=== PATIENT | female | born 1975 | race Caucasian/White ===

== ENCOUNTER 2016-10-18 09:43 | Observation (INO) | payer MEDICAID ==
[2016-10-18] MEDS ORDERED: ASPIRIN 81 MG TABLET, CHEWABLE PO ONE (10:54)
[2016-10-18] MEDS ORDERED: NORMAL SALINE 1000 ML 1,000 ML IV PRN (10:54)
[2016-10-18] MEDS ORDERED: NITROGLYCERIN 2% OINTMENT 1 GM PACKET TP ONE (10:54)
[2016-10-18 10:56] LABS: ABSOLUTE BASOPHILS # (AUTO) 0.1 10^3/uL (0.0-0.2); ABSOLUTE EOSINOPHILS # (AUTO) 0.3 10^3/uL (0.0-0.6); ABSOLUTE LYMPHOCYTES (AUTO) 2.7 10^3/uL (0.5-4.7); ABSOLUTE MONOCYTES (AUTO) 0.9 10^3/uL (0.1-1.4); ABSOLUTE NEUT (AUTO) 5.8 10^3/uL (1.7-8.2); BASOPHILS % (AUTO) 0.5 % (0-2); EOSINOPHILS % (AUTO) 3.2 % (0-6); HEMOGLOBIN 13.2 g/dL (12.0-15.5); HGB HCT DIFFERENCE 1.6; LYMPHOCYTES % (AUTO) 27.9 % (13-45); MEAN CORPUSCULAR HEMOGLOBIN 29.4 pg (27.0-33.4); MEAN CORPUSCULAR HGB CONC 34.8 g/dL (32.0-36.0); MEAN CORPUSCULAR VOLUME 85 fl (80-97); MONOCYTES % (AUTO) 9.3 % (3-13); RED BLOOD COUNT 4.49 10^6/uL (3.72-5.28); RED CELL DISTRIBUTION WIDTH 14.6 % (11.5-14.0); SEGMENTED NEUTROPHILS % (AUTO) 59.1 % (42-78); WHITE BLOOD COUNT 9.8 10^3/uL (4.0-10.5)
--- NOTE | 2016-10-18 11:04 | ER Document Report ---
ED Cardiac - General Chief Complaint: Palpitations Stated Complaint: PALIPATATION Time seen by provider: 10:52 Mode of Arrival: Ambulatory Information source: Patient Notes: This is a 41-year-old female with a history of tachycardia presents to the emergency room with diaphoresis, upper chest discomfort (tightness), palpitations. Patient states that her symptoms are different than what they normally are. TRAVEL OUTSIDE OF THE [place] IN LAST 30 DAYS: No - HPI Patient complains to provider of: Chest tightness, Palpitations Use of: denies: Alcohol, Amphetamines, Bath salts, Caffeine, Cocaine, Decongestants, Other Was the onset of pain: Gradual Is the pain a: New problem Quality of pain: Dull Severity now: None Severity at worst: Mild Pain level currently: Denies Cardiac risk factors: Smoker Positive cardiac history: Yes Associated symptoms: Shortness of breath Exacerbated by: Denies Relieved by: Nothing Similar symptoms previously: Yes Recently seen / treated by doctor: No - Related Data Allergies/Adverse Reactions: Sulfa (Sulfonamide Antibiotics) Adverse Reaction (Verified 10/18/16 10:00) Home Medications: Current Home Medications Isosorbide Dinitrate [Isordil Titradose 5 Mg Tablet] 5 mg PO Q12 10/18/16 [ History] Metoprolol Succinate [Toprol Xl 50 mg Tab.sr] 75 mg PO QHS 10/18/16 [History] Past Medical History - General Information source: Patient - Social History Smoking Status: Current Every Day Smoker Cigarette use (# per day): Yes Chew tobacco use (# tins/day): Yes Smoking Education Provided: No - half-pack a day Frequency of alcohol use: None Drug Abuse: None Lives with: Family Family History: Reviewed & Not Pertinent Patient has suicidal ideation: No Patient has homicidal ideation: No - Past Medical History Cardiac Medical History: Reports: Hx Hypertension Pulmonary Medical History: Reports: None EENT Medical History: Reports: None Neurological Medical History: Reports: None Endocrine Medical History: Reports: None Renal/ Medical History: Reports: None. Denies: Hx Peritoneal Dialysis Malignancy Medical History: Reports: None GI Medical History: Reports: Hx Diverticulitis Past Surgical History: Reports: Hx Cardiac Catheterization, Hx Tubal Ligation - Immunizations Hx Diphtheria, Pertussis, Tetanus Vaccination: Yes Review of Systems - Review of Systems Notes: Review of systems: Constitutional: Denies fever, chills. EENT: Denies ear pain, sinus tenderness, throat pain, throat swelling. Cardiovascular: See H&P Respiratory: Denies wheezing, cough, hemoptysis. Abdomen: Denies abdominal pain, nausea, vomiting, diarrhea. Denies BRBPR or melena. Genitourinary: Denies dysuria, pyuria, hematuria, flank pain. Musculoskeletal: denies joint pain or swelling, denies back pain. Neurologic: Denies headache, photophobia, neck stiffness, weakness. Denies loss of bowel or bladder function. Denies saddle anesthesia. Skin: Denies rash, lesions. Physical Exam - Vital signs Vitals: Temp Pulse Resp BP Pulse Ox 98.0 F 109 H 20 133/88 H 99 10/18/16 09:47 10/18/16 09:47 10/18/16 09:47 10/18/16 09:47 10/18/16 09:47 Notes: Physical exam: GENERAL: 41-year-old female, alert and oriented 3, no acute distress. HEAD: Atraumatic, normocephalic. EYES: Pupils equal round and reactive to light, extraocular movements intact, sclera anicteric, conjunctiva are normal. ENT: TMs normal, nares patent, oropharynx clear without exudates. Moist mucous membranes. NECK: Normal range of motion, supple without lymphadenopathy or JVD. LUNGS: Breath sounds clear to auscultation bilaterally and equal. No wheezes rales or rhonchi. HEART: Regular rate and rhythm without murmurs, rubs or gallops. ABDOMEN: Soft, normoactive bowel sounds. No tenderness to palpation. No guarding, no rebound. No masses appreciated. EXTREMITIES: Normal range of motion, no pitting or edema. No clubbing or cyanosis. NEUROLOGICAL: Cranial nerves II through XII grossly intact. Normal speech, normal gait. PSYCH: Normal mood, normal affect. SKIN: Warm, Dry, normal turgor, no rashes or lesions noted. Course - Re-evaluation Re-evalutation: 10/18/16 11:48 Patient currently is comfortable in bed. gambling monitor shows normal sinus rhythm. She's not in any discomfort. - Vital Signs Vital signs: Temp Pulse Resp BP Pulse Ox 98.2 F 68 12 114/62 100 10/18/16 18:05 10/18/16 18:05 10/18/16 18:05 10/18/16 18:05 10/18/16 18:05 - Laboratory Result Diagrams: 10/18/16 10:27 10/18/16 10:27 Laboratory results interpreted by me: 10/18/16 10/18/16 10:27 10:27 RDW 14.6 H Sodium 135.3 L Carbon Dioxide 19 L BUN 23 H - Diagnostic Test Radiology reviewed: Image reviewed, Reports reviewed - Chest x-ray shows no infiltrates or effusions - EKG Interpretation by Me Rate: Normal Rhythm: NSR - EKG shows normal sinus rhythm with a ventricular rate of 84, no acute ST-T wave changes Discharge - Discharge Clinical Impression: chest pain Condition: Stable Disposition: ADMITTED OBSERVATION Admitting Provider: Hospitalist - Dr. Monroe/Remi Unit Admitted: Telemetry
[2016-10-18 11:07] LABS: PROTHROMBIN TIME 13.1 SEC (11.4-15.4)
[2016-10-18 11:20] LABS: ALANINE AMINOTRANSFERASE 20 U/L (9-52); ALBUMIN 4.2 g/dL (3.5-5.0); ALKALINE PHOSPHATASE 74 U/L (38-126); ANION GAP 13 (5-19); ASPARTATE AMINO TRANSFERASE 19 U/L (14-36); BILIRUBIN,TOTAL 0.4 mg/dL (0.2-1.3); BLOOD UREA NITROGEN 23 mg/dL (7-20); CALCIUM 9.2 mg/dL (8.4-10.2); CARBON DIOXIDE 19 mmol/L (22-30); CHLORIDE 103 mmol/L (98-107); CREATINE KINASE 87 U/L (30-135); CREATININE RESULT 0.89 mg/dL (0.52-1.25); GLUCOSE 92 mg/dL (75-110); POTASSIUM 4.4 mmol/L (3.6-5.0); SODIUM 135.3 mmol/L (137-145); TOTAL PROTEIN 7.3 g/dL (6.3-8.2)
[2016-10-18 11:31] LABS: CREATINE KINASE MB 0.53 ng/mL (<4.55)
[2016-10-18 11:32] LABS: TROPONIN I < 0.012 ng/mL
[2016-10-18] MEDS ORDERED: REGADENOSON INJ 0.4 MG/5 ML DISP.SYRIN IV ONE (11:41)
[2016-10-18 12:52] LABS: THYROID STIMULATING HORMONE 0.98 uIU/mL (0.47-4.68)
--- NOTE | 2016-10-18 12:59 | EKG REPORT ---
SEVERITY:- NORMAL ECG - SINUS RHYTHM : Confirmed by: Ana Berg 18-Oct-2016 12:58:57
[2016-10-18] MEDS ORDERED: ENOXAPARIN SODIUM INJ 40 MG/0.4 ML DISP.SYRIN SUBCUT ONE (13:00)
--- NOTE | 2016-10-18 16:44 | PDOC H&P ---
<MIS DE LEON - Last Filed: 10/18/16 16:37> History of Present Illness Admission Date/PCP: 10/18/16 11:47 CHELY KERNS MD Patient complains of: Chest pain, heart palpitations History of Present Illness: DEBBI MORRIS is a 41 year old female is a past medical history of symptomatic sinus tachycardia that presented to the emergency room with diaphoresis, upper chest discomfort (tightness), palpitations. Patient states that her symptoms are different than what they normally are. The patient was found to be in sinus rhythm cardiac enzymes unremarkable 1 set and the patient had spontaneous resolution of symptoms. She is followed by Dr. Adame cardiology in [facility]. The patient states that she has worn event monitor in the past. The patient underwent cardiac catheterization in 2009 and was noted to have clean coronaries at that time. The patient states that today symptoms were more dramatic than usual and the patient was referred to the hospitalists for observation and management. 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 Medication/Allergy Home Medications: Isosorbide Dinitrate [Isordil Titradose 5 mg Tablet] 5 mg PO Q12 10/18/16 Metoprolol Succinate [Toprol Xl 50 mg Tab.sr] 75 mg PO QHS 10/18/16 Allergies/Adverse Reactions: Sulfa (Sulfonamide Antibiotics) Adverse Reaction (Verified 10/18/16 10:00) Review of Systems Constitutional: PRESENT: night sweats, weakness. ABSENT: chills, fever(s), headache(s), weight gain, weight loss Eyes: ABSENT: visual disturbances Ears: ABSENT: hearing changes Cardiovascular: PRESENT: chest pain, palpitations. ABSENT: dyspnea on exertion , edema, orthropnea Respiratory: ABSENT: cough, hemoptysis Gastrointestinal: ABSENT: abdominal pain, constipation, diarrhea, hematemesis, hematochezia, nausea, vomiting Genitourinary: ABSENT: dysuria, hematuria Musculoskeletal: ABSENT: joint swelling Integumentary: ABSENT: rash, wounds Neurological: ABSENT: abnormal gait, abnormal speech, confusion, dizziness, focal weakness, syncope Psychiatric: ABSENT: anxiety, depression, homidical ideation, suicidal ideation Endocrine: ABSENT: cold intolerance, heat intolerance, polydipsia, polyuria Hematologic/Lymphatic: ABSENT: easy bleeding, easy bruising Physical Exam Vital Signs: Temp Pulse Resp BP Pulse Ox 98.0 F 109 H 20 105/62 92 10/18/16 09:47 10/18/16 09:47 10/18/16 15:01 10/18/16 15:01 10/18/16 15:00 General appearance: PRESENT: no acute distress, cooperative, well-developed, well-nourished Head exam: PRESENT: atraumatic, normocephalic Eye exam: PRESENT: conjunctiva pink, EOMI, PERRLA. ABSENT: scleral icterus Ear exam: PRESENT: normal external ear exam Mouth exam: PRESENT: moist, tongue midline Neck exam: ABSENT: carotid bruit, JVD, lymphadenopathy, thyromegaly Respiratory exam: PRESENT: clear to auscultation enrique, symmetrical, unlabored. ABSENT: rales, rhonchi, tachypnea, wheezes Cardiovascular exam: PRESENT: RRR. ABSENT: diastolic murmur, rubs, systolic murmur Pulses: PRESENT: normal dorsalis pedis pul Vascular exam: PRESENT: normal capillary refill GI/Abdominal exam: PRESENT: normal bowel sounds, soft. ABSENT: distended, guarding, mass, organolmegaly, rebound, tenderness Rectal exam: PRESENT: deferred Extremities exam: PRESENT: full ROM. ABSENT: calf tenderness, clubbing, pedal edema Neurological exam: PRESENT: alert, awake, oriented to person, oriented to place , oriented to time, oriented to situation, CN II-XII grossly intact. ABSENT: motor sensory deficit Psychiatric exam: PRESENT: appropriate affect, normal mood. ABSENT: homicidal ideation, suicidal ideation Skin exam: PRESENT: dry, intact, warm. ABSENT: cyanosis, rash Results Laboratory Results: Labs- Last Values WBC 9.8 10^3/uL (4.0-10.5) 10/18/16 10:27 RBC 4.49 10^6/uL (3.72-5.28) 10/18/16 10:27 Hgb 13.2 g/dL (12.0-15.5) 10/18/16 10:27 Hct 38.0 % (36.0-47.0) 10/18/16 10:27 MCV 85 fl (80-97) 10/18/16 10:27 MCH 29.4 pg (27.0-33.4) 10/18/16 10:27 MCHC 34.8 g/dL (32.0-36.0) 10/18/16 10:27 RDW 14.6 % (11.5-14.0) H 10/18/16 10:27 Plt Count 174 10^3/uL (150-450) 10/18/16 10:27 Seg Neutrophils % 59.1 % (42-78) 10/18/16 10:27 Lymphocytes % 27.9 % (13-45) 10/18/16 10:27 Monocytes % 9.3 % (3-13) 10/18/16 10:27 Eosinophils % 3.2 % (0-6) 10/18/16 10:27 Basophils % 0.5 % (0-2) 10/18/16 10:27 Absolute Neutrophils 5.8 10^3/uL (1.7-8.2) 10/18/16 10:27 Absolute Lymphocytes 2.7 10^3/uL (0.5-4.7) 10/18/16 10:27 Absolute Monocytes 0.9 10^3/uL (0.1-1.4) 10/18/16 10:27 Absolute Eosinophils 0.3 10^3/uL (0.0-0.6) 10/18/16 10:27 Absolute Basophils 0.1 10^3/uL (0.0-0.2) 10/18/16 10:27 PT 13.1 SEC (11.4-15.4) 10/18/16 10:27 INR 0.96 10/18/16 10:27 Sodium 135.3 mmol/L (137-145) L 10/18/16 10:27 Potassium 4.4 mmol/L (3.6-5.0) 10/18/16 10:27 Chloride 103 mmol/L (98-107) 10/18/16 10:27 Carbon Dioxide 19 mmol/L (22-30) L 10/18/16 10:27 Anion Gap 13 (5-19) 10/18/16 10:27 BUN 23 mg/dL (7-20) H 10/18/16 10:27 Creatinine 0.89 mg/dL (0.52-1.25) 10/18/16 10:27 Est GFR ( Amer) > 60 (>60) 10/18/16 10:27 Est GFR (Non-Af Amer) > 60 (>60) 10/18/16 10:27 Glucose 92 mg/dL (75-110) 10/18/16 10:27 Calcium 9.2 mg/dL (8.4-10.2) 10/18/16 10:27 Total Bilirubin 0.4 mg/dL (0.2-1.3) 10/18/16 10:27 Direct Bilirubin 0.0 mg/dL (0.0-0.3) 10/18/16 10:27 AST 19 U/L (14-36) 10/18/16 10:27 ALT 20 U/L (9-52) 10/18/16 10:27 Alkaline Phosphatase 74 U/L (38-126) 10/18/16 10:27 Creatine Kinase 87 U/L (30-135) 10/18/16 10:27 CK-MB (CK-2) 0.53 ng/mL (<4.55) 10/18/16 10:27 Troponin I < 0.012 ng/mL 10/18/16 10:27 Total Protein 7.3 g/dL (6.3-8.2) 10/18/16 10:27 Albumin 4.2 g/dL (3.5-5.0) 10/18/16 10:27 TSH 0.98 uIU/mL (0.47-4.68) 10/18/16 10:27 Free T4 1.56 ng/dL (0.78-2.19) 10/18/16 10:27 Impressions: Chest X-Ray 10/18/16 00:00 IMPRESSION: NO ACUTE RADIOGRAPHIC FINDING IN THE CHEST. Assessment & Plan - Diagnosis (1) Chest pain Qualifiers: Chest pain type: unspecified Qualified Code(s): R07.9 - Chest pain, unspecified Is this a current diagnosis for this admission?: YesPlan: Will observe the patient continues telemetry will obtain serial cardiac enzymes repeat EKG and monitor on telemetry. Given the patient's risk factors of family history of early onset coronary artery disease as well as tobacco dependency will schedule for Cardiolite stress test and follow. (2) Sinus tachycardia Is this a current diagnosis for this admission?: YesPlan: The patient is currently rate control will continue Cardizem. (3) DVT prophylaxis Is this a current diagnosis for this admission?: YesPlan: Will add subcutaneous heparin - Time Time Spent: 50 to 70 Minutes Medications reviewed and adjusted accordingly: Yes Anticipated discharge: Home Within: within 24 hours Disposition: The patient is a full code. Pending patient's symptomatology and diagnostic findings will reevaluate in the a.m. <JOHN GRAY - Last Filed: 10/20/16 14:13> History of Present Illness Admission Date/PCP: 10/18/16 11:47 CHELY KERNS MD History of Present Illness: DEBBI MORRIS is a 41 year old female Physical Exam Vital Signs: Temp Pulse Resp BP Pulse Ox 98.2 F 75 18 114/62 97 10/19/16 14:01 10/19/16 14:01 10/19/16 14:01 10/19/16 14:01 10/19/16 14:01 Intake & Output 10/19/16 10/20/16 10/21/16 06:59 06:59 06:59 Intake Total 5 Balance 5 Weight 89.4 kg Results Laboratory Results: 10/18/16 10/19/16 18:18 00:17 Troponin I < 0.012 < 0.012 Impressions: Chest X-Ray 10/18/16 00:00
[2016-10-18] MEDS: ISOSORBIDE DINITRATE 5 MG TABLET PO SCH (21:37)
[2016-10-18] MEDS ORDERED: METOPROLOL SUCCINATE 50 MG TAB.SR.24H PO SCH (22:00)
[2016-10-19 06:39] LABS: CHOLESTEROL 177.28 mg/dL (0-200); Direct HDL 38 mg/dL (>40); TRIGLYCERIDES 117 mg/dL (<150)
[2016-10-19 06:50] LABS: DIRECT LDL 112 mg/dL (<100)
[2016-10-19] MEDS ORDERED: ENOXAPARIN SODIUM INJ 40 MG/0.4 ML DISP.SYRIN SUBCUT SCH (08:00)
--- NOTE | 2016-10-19 09:36 | EKG REPORT ---
SEVERITY:- NORMAL ECG - SINUS RHYTHM : Confirmed by: Ana Berg 19-Oct-2016 09:35:35
[2016-10-19] MEDS: ISOSORBIDE DINITRATE 5 MG TABLET PO SCH (11:06)
[2016-10-19 14:05] VITALS: BP 114/62
--- NOTE | 2016-10-19 14:29 | DRAGON STRESS TEST REPORT ---
Intravenous Lexiscan Cardiolite stress test using single photon emmision computerized tomography. Date of procedure: 10/19/2016 Ordering Provider: Ms. Ran Khalil NP. Indication: Chest pain. Coronary risk factors: Age, hypertension, tobacco abuse disorder, and family history of coronary artery disease. Resting EKG: Sinus Rhythm. Within Normal Limits. Stress EKG:[ No changes of ischemia. The patient had transient chest pressure relieved with drinking Pepsi. There were no arrhythmias seen. Reason for termination: Protocol. Conclusions: Normal EKG and hemodynamic response to IV Lexiscan. Nuclear data: At rest the patient was given 13.44 millicuries of technetium 99m sestamibi injected intravenously. As per protocol rest non gated SPECT images were obtained. Subsequently the patient was given intravenous Lexiscan at a dose of 0.4 mg in 5 mL intravenously, followed by flush with normal saline. Subsequently the stress dose of 41.3 millicuries of technetium 99m sestamibi was injected intravenously. As per protocol stress gated images were obtained. Nuclear interpretation: Review of images showed that there is a perfusion defect in the anteroapical wall in the rest images. In this area there is normal perfusion in the stress images. The rest of the segments of the myocardium had normal perfusion at rest , and all segments of the myocardium had normal perfusion post stress with IV Lexiscan. All segments of the myocardium had normal motion, contraction, and thickening by gated study. T. I D. ratio was normal at 0.86. Computer read rest, and stress left ventricular ejection fraction were 68 %, and 70 %, respectively. Conclusion: 1. There is no scintigraphic evidence of Lexiscan induced myocardial ischemia. 2. There is no scintigraphic evidence of myocardial infarction/scar. Recommendations: Aggressive risk factor modification, and treating the underlying co- morbidities. MTDD
--- NOTE | 2016-10-19 17:08 | PDOC DISCHARGE SUMMARY ---
General - Admit/Disc Date/PCP Admission Date/Primary Care Provider: 10/18/16 11:47 CHELY KERNS MD Discharge Date: 10/19/16 - Discharge Diagnosis (1) Chest pain Is this a current diagnosis for this admission?: YesSummary: Most likely musculoskeletal in origin versus coronary spasm (2) Sinus tachycardia Is this a current diagnosis for this admission?: Yes (3) Tobacco dependency Is this a current diagnosis for this admission?: Yes (4) DVT prophylaxis Is this a current diagnosis for this admission?: Yes - Additional Information Resuscitation Status: Full Code Discharge Diet: Regular Discharge Activity: Activity As Tolerated Home Medications: Isosorbide Dinitrate [Isordil Titradose 5 mg Tablet] 5 mg PO Q12 10/18/16 Metoprolol Succinate [Toprol Xl 50 mg Tab.sr] 75 mg PO QHS 10/18/16 History of Present Illness Patient complains of: Chest pain History of Present Illness: DEBBI MORRIS is a 41 year old female is a past medical history of symptomatic sinus tachycardia that presented to the emergency room with diaphoresis, upper chest discomfort (tightness), palpitations. Patient states that her symptoms are different than what they normally are. The patient was found to be in sinus rhythm cardiac enzymes unremarkable 1 set and the patient had spontaneous resolution of symptoms. She is followed by Dr. Adame cardiology in [facility]. The patient states that she has worn event monitor in the past. The patient underwent cardiac catheterization in 2009 and was noted to have clean coronaries at that time. The patient states that today symptoms were more dramatic than usual and the patient was referred to the hospitalists for observation and management. Hospital Course Hospital Course: The patient was observed in a continues telemetry unit, serial cardiac enzymes were obtained which were nonsuggestive. The patient's EKG revealed no acute changes and the patient had no events on desk monitor. Patient had no further replication of symptoms. The patient does have a follow-up appointment with her customer complaint service supervisor Dr. Adame this month. Given the patient's history of tachycardia recommend evaluation and possible event monitoring. Patient underwent Cardiolite stress test and findings were not suggestive of reversible ischemia. The patient is eager for discharge. Physical Exam Vital Signs: Temp Pulse Resp BP Pulse Ox 98.2 F 75 18 114/62 97 10/19/16 14:01 10/19/16 14:01 10/19/16 14:01 10/19/16 14:01 10/19/16 14:01 Intake & Output 10/17/16 10/18/16 10/19/16 23:59 23:59 23:59 Intake Total 5 Balance 5 Weight 89.4 kg General appearance: PRESENT: no acute distress, cooperative, well-developed, well-nourished Head exam: PRESENT: atraumatic, normocephalic Eye exam: PRESENT: conjunctiva pink, EOMI, PERRLA. ABSENT: scleral icterus Ear exam: PRESENT: normal external ear exam Mouth exam: PRESENT: moist, tongue midline Neck exam: ABSENT: carotid bruit, JVD, lymphadenopathy, thyromegaly Respiratory exam: PRESENT: clear to auscultation enrique, symmetrical, unlabored. ABSENT: rales, rhonchi, tachypnea, wheezes Cardiovascular exam: PRESENT: RRR. ABSENT: diastolic murmur, rubs, systolic murmur Pulses: PRESENT: normal dorsalis pedis pul Vascular exam: PRESENT: normal capillary refill GI/Abdominal exam: PRESENT: normal bowel sounds, soft. ABSENT: distended, guarding, mass, organolmegaly, rebound, tenderness Rectal exam: PRESENT: deferred Extremities exam: PRESENT: full ROM. ABSENT: calf tenderness, clubbing, pedal edema Neurological exam: PRESENT: alert, awake, oriented to person, oriented to place , oriented to time, oriented to situation, CN II-XII grossly intact. ABSENT: motor sensory deficit Psychiatric exam: PRESENT: appropriate affect, normal mood. ABSENT: homicidal ideation, suicidal ideation Skin exam: PRESENT: dry, intact, warm. ABSENT: cyanosis, rash Results Laboratory Results: 10/19/16 06:05 Triglycerides 117 Cholesterol 177.28 LDL Cholesterol Direct 112 H VLDL Cholesterol 23.0 HDL Cholesterol 38 L 10/18/16 10/19/16 18:18 00:17 Troponin I < 0.012 < 0.012 Labs- Last Values WBC 9.8 10^3/uL (4.0-10.5) 10/18/16 10:27 RBC 4.49 10^6/uL (3.72-5.28) 10/18/16 10:27 Hgb 13.2 g/dL (12.0-15.5) 10/18/16 10:27 Hct 38.0 % (36.0-47.0) 10/18/16 10:27 MCV 85 fl (80-97) 10/18/16 10:27 MCH 29.4 pg (27.0-33.4) 10/18/16 10:27 MCHC 34.8 g/dL (32.0-36.0) 10/18/16 10:27 RDW 14.6 % (11.5-14.0) H 10/18/16 10:27 Plt Count 174 10^3/uL (150-450) 10/18/16 10:27 Seg Neutrophils % 59.1 % (42-78) 10/18/16 10:27 Lymphocytes % 27.9 % (13-45) 10/18/16 10:27 Monocytes % 9.3 % (3-13) 10/18/16 10:27 Eosinophils % 3.2 % (0-6) 10/18/16 10:27 Basophils % 0.5 % (0-2) 10/18/16 10:27 Absolute Neutrophils 5.8 10^3/uL (1.7-8.2) 10/18/16 10:27 Absolute Lymphocytes 2.7 10^3/uL (0.5-4.7) 10/18/16 10:27 Absolute Monocytes 0.9 10^3/uL (0.1-1.4) 10/18/16 10:27 Absolute Eosinophils 0.3 10^3/uL (0.0-0.6) 10/18/16 10:27 Absolute Basophils 0.1 10^3/uL (0.0-0.2) 10/18/16 10:27 PT 13.1 SEC (11.4-15.4) 10/18/16 10:27 INR 0.96 10/18/16 10:27 Sodium 135.3 mmol/L (137-145) L 10/18/16 10:27 Potassium 4.4 mmol/L (3.6-5.0) 10/18/16 10:27 Chloride 103 mmol/L (98-107) 10/18/16 10:27 Carbon Dioxide 19 mmol/L (22-30) L 10/18/16 10:27 Anion Gap 13 (5-19) 10/18/16 10:27 BUN 23 mg/dL (7-20) H 10/18/16 10:27 Creatinine 0.89 mg/dL (0.52-1.25) 10/18/16 10:27 Est GFR ( Amer) > 60 (>60) 10/18/16 10:27 Est GFR (Non-Af Amer) > 60 (>60) 10/18/16 10:27 Glucose 92 mg/dL (75-110) 10/18/16 10:27 Calcium 9.2 mg/dL (8.4-10.2) 10/18/16 10:27 Total Bilirubin 0.4 mg/dL (0.2-1.3) 10/18/16 10:27 Direct Bilirubin 0.0 mg/dL (0.0-0.3) 10/18/16 10:27 AST 19 U/L (14-36) 10/18/16 10:27 ALT 20 U/L (9-52) 10/18/16 10:27 Alkaline Phosphatase 74 U/L (38-126) 10/18/16 10:27 Creatine Kinase 87 U/L (30-135) 10/18/16 10:27 CK-MB (CK-2) 0.53 ng/mL (<4.55) 10/18/16 10:27 Troponin I < 0.012 ng/mL 10/19/16 00:17 Total Protein 7.3 g/dL (6.3-8.2) 10/18/16 10:27 Albumin 4.2 g/dL (3.5-5.0) 10/18/16 10:27 Triglycerides 117 mg/dL (<150) 10/19/16 06:05 Cholesterol 177.28 mg/dL (0-200) 10/19/16 06:05 LDL Cholesterol Direct 112 mg/dL (<100) H 10/19/16 06:05 VLDL Cholesterol 23.0 mg/dL (10-31) 10/19/16 06:05 HDL Cholesterol 38 mg/dL (>40) L 10/19/16 06:05 TSH 0.98 uIU/mL (0.47-4.68) 10/18/16 10:27 Free T4 1.56 ng/dL (0.78-2.19) 10/18/16 10:27 Impressions: Chest X-Ray 10/18/16 00:00 IMPRESSION: NO ACUTE RADIOGRAPHIC FINDING IN THE CHEST. Qualifiers PATEINT BEING DISCHARGED WITH ANY OF THE FOLLOWING DIAGNOSIS?: No Plan Discharge Plan: The patient is to follow with her customer complaint service supervisor as a rescheduled this month Dr. Adame for hospital follow-up. Time Spent: Less than 30 Minutes
== END 2016-10-19 14:07 | disposition home or self-care (01) ==
LOC: ER 09:43 → EH 11:47 → UNDOADMOB 12:18 → 4S 17:06
PROVIDERS: ADMIT Internal Medicine; ATTEND Internal Medicine
PROC: 3E0337Z Introduction of Electrolytic and Water Balance Substance into Peripheral Vein, Percutaneous Approach (ICD-10-PCS; principal; 2016-10-18)
PROC: 3E0337Z Introduction of Electrolytic and Water Balance Substance into Peripheral Vein, Percutaneous Approach (ICD-10-PCS; 2016-10-18)
PROC: 3E023GC Introduction of Other Therapeutic Substance into Muscle, Percutaneous Approach (ICD-10-PCS; 2016-10-18)
DX: R07.89 Other chest pain (principal); R00.0 Tachycardia, unspecified; I10 Essential (primary) hypertension; F17.210 Nicotine dependence, cigarettes, uncomplicated
CPT/HCPCS: 93005 ×2; 99285; 96372; 96360; 96361; 36415 ×2; 84439; 82553; 82550; 84443; 85025; 85610; 80053; 84484 ×2; 80061; 93017; 71010; 78452; 93010 ×2; G0378 ×3; A9500; J2785; J3490 ×4; J1650 ×2; J7030; Q9969

== ENCOUNTER 2017-09-15 21:43 | Emergency (ER) | payer SELFPAY ==
[2017-09-15 22:13] LABS: APPEARANCE,URINE CLEAR; BILIRUBIN,URINE NEGATIVE (NEGATIVE); COLOR,URINE STRAW; GLUCOSE, URINE NEGATIVE (NEGATIVE); KETONES,URINE NEGATIVE (NEGATIVE); LEUKOCYTE ESTERASE,URINE NEGATIVE (NEGATIVE); NITRITE,URINE NEGATIVE (NEGATIVE); PROTEIN,URINE NEGATIVE (NEGATIVE); URINE SPECIFIC GRAVITY 1.008; UROBILINOGEN,URINE NEGATIVE mg/dL (<2.0)
--- NOTE | 2017-09-16 00:34 | ER Document Report ---
ED General - General Chief Complaint: Flank Pain Stated Complaint: BACK PAIN, ABDOMINAL PAIN Time Seen by Provider: 09/16/17 00:24 Notes: Patient is a pleasant 42-year-old female presents with complaint of left back pain radiating rates around the left flank and into the left lower quadrant. Pain is been ongoing for the last 24 hours. No vomiting. No diarrhea. No fevers. No dysuria. She does have a history of diverticulitis. No history of kidney stones. She does have atrophic kidney on the left side. No other complaints at this time. Only previous abdominal surgeries tubal ligation. TRAVEL OUTSIDE OF THE [place] IN LAST 30 DAYS: No - Related Data Allergies/Adverse Reactions: Sulfa (Sulfonamide Antibiotics) Adverse Reaction (Verified 10/18/16 10:00) Past Medical History - Social History Smoking Status: Current Every Day Smoker Chew tobacco use (# tins/day): No Frequency of alcohol use: None Drug Abuse: None Family History: Reviewed & Not Pertinent Patient has suicidal ideation: No Patient has homicidal ideation: No - Past Medical History Cardiac Medical History: Reports: Hx Hypertension Renal/ Medical History: Denies: Hx Peritoneal Dialysis GI Medical History: Reports: Hx Diverticulitis Past Surgical History: Reports: Hx Cardiac Catheterization, Hx Tubal Ligation, Other - Lip surgery - Immunizations Hx Diphtheria, Pertussis, Tetanus Vaccination: Yes Review of Systems - Review of Systems Notes: My Normal Review Basic REVIEW OF SYSTEMS: CONSTITUTIONAL : Denies fever, chills, or sweats. Denies recent illness. CARDIOVASCULAR: Denies chest pain. RESPIRATORY: Denies cough, cold, or chest congestion. Denies shortness of breath, difficulty breathing, or wheezing. GASTROINTESTINAL: Left sided abdomen and flank pain. GENITOURINARY: Denies difficulty urinating, painful urination, burning, frequency, or blood in urine. MUSCULOSKELETAL: Denies neck or back pain or joint pain or swelling. SKIN: Denies rash or skin lesions. NEUROLOGICAL: Denies altered mental status or loss of consciousness. Denies headache. Denies weakness or paralysis or loss of use of either side. Denies problems with gait or speech. Denies sensory or motor loss. ALL OTHER SYSTEMS REVIEWED AND NEGATIVE. Physical Exam - Vital signs Vitals: Temp Pulse Resp BP Pulse Ox 99 F 96 18 129/79 H 98 09/15/17 21:48 09/15/17 21:48 09/15/17 21:48 09/15/17 21:48 09/15/17 21:48 - Notes Notes: General Appearance: Well nourished, alert, cooperative, no acute distress, no obvious discomfort. Vitals: reviewed, See vital signs table. Head: no swelling or tenderness to the head Eyes: PERRL, EOMI, Conjuctiva clear Mouth: No decreasd moisture Lungs: No wheezing, No rales, No rhonci, No accessory muscle use, good air exchange bilaterally. Heart: Normal rate, Regular rythm, No murmur, no rub Abdomen: Normal BS, soft, No rigidity, and to palpation over the left lower quadrant of the abdomen. Pain is moderate to palpation., No guarding, no rebound, no abdominal masses, no organomegaly Extremities: strength 5/5 in all extremities, good pulses in all extremities, no swelling or tenderness in the extremities, no edema. Skin: warm, dry, appropriate color, no rash Neuro: speech clear, oriented x 3, normal affect, responds appropriately to questions. Course - Re-evaluation Re-evalutation: 09/16/17 06:[address] scan shows diverticulitis. This is consistent with her history. She has no leukocytosis. She has no fever. Her abdomen exam is benign and she is well controlled her pain. We will discharge her home with antibiotics. I strongly encouraged her return to ER immediately if she has vomiting, worsening pain, blood in her stool, or feels unwell. Patient agrees with plan will be discharged home. Dictation of this chart was performed using voice recognition software; therefore, there may be some unintended grammatical errors. - Vital Signs Vital signs: Temp Pulse Resp BP Pulse Ox 98.4 F 91 16 113/64 96 09/16/17 02:50 09/16/17 02:50 09/16/17 02:50 09/16/17 02:50 09/16/17 02:50 - Laboratory Result Diagrams: 09/16/17 00:52 09/16/17 00:52 Laboratory results interpreted by me: 09/16/17 00:52 Glucose 122 H Discharge - Discharge Clinical Impression: Diverticulitis Condition: Good Disposition: HOME, SELF-CARE Instructions: Oral Narcotic Medication ([facility]) Additional Instructions: Diverticulitis You have been diagnosed as having diverticulitis. This is an inflammation of a small pouch attached to the colon, called a diverticulum. Many of these small pouches can form on the colon as you get older. They are often caused by constipation. When inflamed or infected, symptoms arise -- usually abdominal pain, constipation or diarrhea, fever, and blood in the stool. Severe diverticulitis may require hospitalization. More mild cases are usually treated with antibiotics and clear liquid diet. As you improve, a diet low in residue (one which forms little stool) is prescribed. When you are better, you should eat a high-fiber diet. Stool softeners ( like Metamucil) are usually recommended. Call the doctor or go to the hospital if there is increasing pain, vomiting , high fever, large amounts of blood passed, or if bowel movements cease. Prescriptions: Ciprofloxacin HCl [Cipro 500 mg Tablet] 500 mg PO BID #14 tablet Metronidazole [Flagyl 500 mg Tablet] 500 mg PO Q6H #28 tablet Ondansetron [Zofran Odt 4 mg Tablet] 1 tab PO Q4H PRN #15 tab.rapdis PRN Reason: For Nausea/Vomiting Referrals: LARRY RAMOS MD [Primary Care Provider] - Follow up in 3-5 days
[2017-09-16 01:08] LABS: ABSOLUTE BASOPHILS # (AUTO) 0.1 10^3/uL (0.0-0.2); ABSOLUTE EOSINOPHILS # (AUTO) 0.2 10^3/uL (0.0-0.6); ABSOLUTE LYMPHOCYTES (AUTO) 1.9 10^3/uL (0.5-4.7); ABSOLUTE NEUT (AUTO) 6.9 10^3/uL (1.7-8.2); BASOPHILS % (AUTO) 0.7 % (0-2); HEMATOCRIT 36.2 % (36.0-47.0); HEMOGLOBIN 12.2 g/dL (12.0-15.5); LYMPHOCYTES % (AUTO) 19.1 % (13-45); MEAN CORPUSCULAR HEMOGLOBIN 28.6 pg (27.0-33.4); MEAN CORPUSCULAR HGB CONC 33.8 g/dL (32.0-36.0); MEAN CORPUSCULAR VOLUME 85 fl (80-97); MONOCYTES % (AUTO) 9.6 % (3-13); PLATELET COUNT 209 10^3/uL (150-450); RED BLOOD COUNT 4.27 10^6/uL (3.72-5.28); RED CELL DISTRIBUTION WIDTH 13.2 % (11.5-14.0); SEGMENTED NEUTROPHILS % (AUTO) 68.6 % (42-78); TOTAL CELLS COUNTED % (AUTO) 100 %
[2017-09-16] MEDS ORDERED: KETOROLAC TROMETHAMINE INJ/PF 30 MG/1 ML SDV IM ONE (01:18)
[2017-09-16 01:36] LABS: ANION GAP 9 (5-19); BLOOD UREA NITROGEN 10 mg/dL (7-20); CALCIUM 8.9 mg/dL (8.4-10.2); CARBON DIOXIDE 24 mmol/L (22-30); CHLORIDE 106 mmol/L (98-107); GLUCOSE 122 mg/dL (75-110); POTASSIUM 4.1 mmol/L (3.6-5.0); SODIUM 138.5 mmol/L (137-145)
--- NOTE | 2017-09-16 02:23 | RADIOLOGY REPORT (SQ) ---
EXAM DESCRIPTION: CT LTD RENAL STONE PROTOCOL ON COMPLETED DATE/TIME: 09/16/2017 2:05 am REASON FOR STUDY: left flank pain COMPARISON: CT abdomen and pelvis 06/13/2015. TECHNIQUE: CT scan of the abdomen and pelvis performed without intravenous or oral contrast. Images reviewed with lung, soft tissue, and bone windows. Reconstructed coronal and sagittal MPR images revi ewed. All images stored on PACS. All CT scanners at this facility use dose modulation, iterative reconstruction, and/or weight based d osing when appropriate to reduce radiation dose to as low as reasonably achievable (ALARA). [facility]: Dose Right [facility]: CareDose [facility]: Dose Right [facility]: Teradose 4D [facility]: [employer] RADIATION DOSE: CT Rad equipment meets quality standard of care and radiation dose reduction techniq ues were employed. CTDIvol: 14.5 mGy. DLP: 801 mGy-cm.mGy. LIMITATIONS: None. FINDINGS: LOWER CHEST: No consolidation or pleural effusion. NON-CONTRASTED LIVER, SPLEEN, ADRENALS: Evaluation limited by lack of IV contrast. No identified sign ificant masses. PANCREAS: No peripancreatic inflammatory changes. GALLBLADDER: No identified stones by CT criteria. No inflammatory changes to suggest cholecystitis. RIGHT KIDNEY AND URETER: There is asymmetric enlargement of the right kidney. No significant calcifi cations. No hydronephrosis or hydroureter. LEFT KIDNEY AND URETER: There is cortical atrophy of the left kidney with a lobulated contour. No si gnificant calcifications. No hydronephrosis or hydroureter. AORTA AND RETROPERITONEUM: No abdominal aortic aneurysm. No retroperitoneal masses or hemorrhage. BOWEL AND PERITONEAL CAVITY: No dilated small bowel loops. There is sigmoid diverticulosis. There i s wall thickening with adjacent inflammatory changes and trace free fluid at the sigmoid colon. APPENDIX: Normal. PELVIS, BLADDER, AND ABDOMINAL WALL:The urinary bladder is decompressed. The uterus is present. BONES: Mild multilevel degenerative changes within the spine. IMPRESSION: Sigmoid diverticulosis with wall thickening, adjacent inflammatory changes and trace julián e fluid, suggestive of acute diverticulitis. Followup colonoscopy after treatment recommended to exc lude underlying neoplasm. COMMENT: Quality ID # [id number]: Final reports with documentation of one or more dose reduction techniques (e.g., Automated exposure control, adjustment of the mA and/or kV according to patient size, use of iterative reconstruction technique) TECHNICAL DOCUMENTATION: JOB ID: [id number]-64 2010 [facility] [employer]- All Rights Reserved
[2017-09-16] MEDS ORDERED: METRONIDAZOLE 500 MG TABLET PO ONE (02:31)
[2017-09-16] MEDS ORDERED: CIPROFLOXACIN HCL 500 MG TABLET PO ONE (02:31)
[2017-09-16] MEDS ORDERED: ONDANSETRON ODT 4 MG TAB (6 TAB/ER DISP) PO PRN (02:32)
[2017-09-16] MEDS ORDERED: HYDROCODONE/ACETAMINOPHEN 5-325 MG (6 TAB/ER DISP) PO PRN (02:32)
[2017-09-16 02:56] VITALS: BP 113/64
== END 2017-09-16 02:50 | disposition home or self-care (01) ==
LOC: ER 21:43
DX: K57.92 Diverticulitis of intestine, part unspecified, without perforation or abscess without bleeding (principal); R10.9 Unspecified abdominal pain; M54.9 Dorsalgia, unspecified; F17.200 Nicotine dependence, unspecified, uncomplicated
CPT/HCPCS: 99284; 96372; 36415; 85025; 81025; 80048; 81001; 76380; J1885

== ENCOUNTER 2018-02-04 11:07 | Emergency (ER) | payer SELFPAY ==
[2018-02-04] MEDS ORDERED: LIDOCAINE 5% (700 MG) TRANSDERMAL ADH..PATCH TP ONE (11:54)
[2018-02-04] MEDS ORDERED: KETOROLAC TROMETHAMINE 60 MG/2 ML SDV IM ONE (11:54)
[2018-02-04] MEDS ORDERED: DEXAMETHASONE SOD PHOS INJ 10 MG/1 ML VIAL IM ONE (11:54)
--- NOTE | 2018-02-04 12:49 | RADIOLOGY REPORT (SQ) ---
EXAM DESCRIPTION: L SPINE WHOLE COMPLETED DATE/TIME: 02/04/2018 12:37 pm REASON FOR STUDY: chronic pain severe exacerbation COMPARISON: None. NUMBER OF VIEWS: Five views including obliques. TECHNIQUE: AP, lateral, oblique, and sacral radiographic images acquired of the lumbar spine. LIMITATIONS: None. FINDINGS: MINERALIZATION: Normal. SEGMENTATION: Normal. No transitional anatomy. ALIGNMENT: Normal. VERTEBRAE: Maintained height. No fracture or worrisome bone lesion. DISCS: Preserved height. No significant osteophytes or end plate irregularity. POSTERIOR ELEMENTS: Pedicles and facets are intact. No pars defect or posterior arch defects. HARDWARE: None in the spine. PARASPINAL SOFT TISSUES: Normal. PELVIS: Intact as visualized. No fractures or worrisome bone lesions. SI joints intact. OTHER: No other significant finding. IMPRESSION: NORMAL 5 VIEW LUMBAR SPINE. TECHNICAL DOCUMENTATION: JOB ID: [id number] [employer]- All Rights Reserved Reading location - IP/workstation name: [email or web address]
--- NOTE | 2018-02-04 13:14 | ER Document Report ---
ED Neck/Back Problem - General Chief Complaint: Back Pain Stated Complaint: BACK PAIN Time Seen by Provider: 02/04/18 11:37 Mode of Arrival: Ambulatory Information source: Patient Notes: 42-year-old female presented ED for complaint of lower back pain and pressure. She states she has a history of bulging disks in lower back reports she was walking this morning when she suddenly had severe pain and pressure. She denies any specific injury. She reports some numbness and tingling to the right lower extremity. Patient denies any loss control of bowel or bladder. Patient is alert and oriented speaking in full sentences respirations regular and unlabored and able to walk with a even steady gait. TRAVEL OUTSIDE OF THE [place] IN LAST 30 DAYS: No - HPI Patient complains to provider of: Pain, Lower back. No: Injury Onset: This morning Onset: Chronic Timing: Worse Quality of pain: Pressure, Sharp Severity: Moderate Pain Level: 4 Recent injury: No Associated symptoms: Like prior neck/back pain, Numbness/tingling, Radiation to leg, Lower back pain. denies: Incontinence, Sensory loss, Sweaty, Unable to urinate Exacerbated by: Movement of trunk, Sitting position Relieved by: Nothing Similar symptoms previously: Yes Recently seen / treated by doctor: No - Related Data Allergies/Adverse Reactions: Sulfa (Sulfonamide Antibiotics) Adverse Reaction (Verified 10/18/16 10:00) Past Medical History - General Information source: Patient - Social History Smoking Status: Current Every Day Smoker Cigarette use (# per day): Yes - Pack per day Chew tobacco use (# tins/day): No Smoking Education Provided: Yes - 4 minutes Frequency of alcohol use: None Drug Abuse: None 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 Lives with: Family Family History: Reviewed & Not Pertinent Patient has suicidal ideation: No Patient has homicidal ideation: No - Past Medical History Cardiac Medical History: Reports: Hx Hypertension GI Medical History: Reports: Hx Diverticulitis Musculoskeltal Medical History: Reports Hx Arthritis, Reports Hx Musculoskeletal Deformity, Reports Hx Musculoskeletal Trauma Past Surgical History: Reports: Hx Cardiac Catheterization, Hx Gynecologic Surgery - leep, Hx Tubal Ligation, Other - Lip surgery - Immunizations Hx Diphtheria, Pertussis, Tetanus Vaccination: Yes Review of Systems - Review of Systems Gastrointestinal: denies: Constipation, Fecal incontinence Genitourinary: denies: Incontinence, Retention Musculoskeletal: Back pain, Muscle pain, Muscle stiffness Neurological/Psychological: Tingling - Right lower extremity -: Yes All other systems reviewed and negative Physical Exam - Vital signs Vitals: Temp Pulse Resp BP Pulse Ox 98.5 F 80 19 113/73 96 02/04/18 11:14 02/04/18 11:14 02/04/18 11:14 02/04/18 11:14 02/04/18 11:14 - Back Back: Normal, Tender, Vertebra tenderness Course - Re-evaluation Re-evalutation: 02/04/18 22:22 Patient was treated with Toradol Decadron and Lidoderm patch for her back pain with radiation to the right lower extremity. X-rays were discussed with her and a written report of x-rays given to her. Patient was instructed to follow- up with her primary doctor and do have them refer her to a back specialist as necessary. After performing a Medical Screening Examination, I estimate there is LOW risk for EXPANDING OR RUPTURED ABDOMINAL AORTIC ANEURYSM, CAUDA EQUINA SYNDROME, EPIDURAL MASS LESION, or HERNIATED DISK CAUSING SEVERE SPINAL STENOSIS , thus I consider the discharge disposition reasonable. I have reevaluated this patient multiple times and no significant life threatening changes are noted. The patient and I have discussed the diagnosis and risks, and we agree with discharging home and close follow-up. We also discussed returning to the Emergency Department immediately if new or worsening symptoms occur with the understanding that symptoms and presentations can change. We have discussed the symptoms which are most concerning (e.g., saddle anesthesia, urinary or bowel incontinence or retention, changing or worsening pain) that necessitate immediate return. - Vital Signs Vital signs: Temp Pulse Resp BP Pulse Ox 98.5 F 85 16 117/70 97 02/04/18 11:14 02/04/18 13:20 02/04/18 13:20 02/04/18 13:20 02/04/18 13:20 - Diagnostic Test Radiology reviewed: Image reviewed, Reports reviewed Discharge - Discharge Clinical Impression: Low back ache Qualifiers: Chronicity: chronic Back pain laterality: bilateral Sciatica presence: with sciatica Sciatica laterality: sciatica of right side Qualified Code(s): M54.41 - Lumbago with sciatica, right side Condition: Stable Disposition: HOME, SELF-CARE Additional Instructions: Chronic Back Pain Chronic back pain (pain persisting longer than three months) is a common problem. A medical evaluation can look for herniated disc, arthritis, osteoporosis, tumors, and infections. But at least half the time, there's no obvious treatable cause. Anxiety and depression tend to worsen back pain. Ibuprofen or other anti-inflammatory medicine can help. A heating pad, used for 15-20 minutes at a time, can ease pain. For this type of back pain, narcotic medicines should be avoided. Muscle relaxers are rarely helpful unless you're having spasms. Activity is important. Find an aerobic exercise program that your back can tolerate. Too much rest makes back pain worse. Specific back exercises are usually prescribed to strengthen the back and abdominal muscles. Often, a physical therapist can help. Avoid heavy lifting, working while bent over, or standing with both knees straight. Most back pain patients do better with a firm mattress. If new symptoms of a "herniated disc" (radiation of pain, numbness, or tingling down the back of the leg or weakness in the leg) occur, you should be re-examined. Sciatica Your symptoms suggest "sciatica." The pain of sciatica typically radiates down the leg. Numbness in the foot or calf may also occur. Sciatica is caused by irritation of the sciatic nerve or its branches. The irritation can be due to a herniated disk in the spine, swelling and inflammation in the muscles surrounding the sciatic nerve, or direct injury of the nerve itself. Most cases of sciatica will resolve with medical treatment. Bed rest is usually recommended initially. Surgery is only necessary when the condition will not improve with rest and antiinflammatory medication. Muscle relaxers are often given if muscle soreness is present. A CAT scan of the back may be performed if a herniated disk is suspected. Re-examination is necessary if you develop increasing numbness, localized weakness in the foot or ankle, or if the pain does not respond to rest. Toradol Injection You have been given an injection of ketorolac tromethamine (Toradol). This is an excellent, safe drug for pain control. It also has potent antiinflammatory action. You should have significant pain relief within about one hour. Toradol is not addicting and is non-sedating. It does not interfere with driving or work. Call or return if you develop itching, hives, shortness of breath, or rash. Stretching Exercises for the Back The physician has recommended that you begin stretching exercises for your back. These are often used even while the back is painful. However, you should notify the physician if the activities seem to increase your pain. PELVIC TILT: Lie flat on your back with knees bent. Tighten your stomach and buttock muscles so it flattens your lower back against the floor. Hold 10 seconds. Repeat 10 times, twice daily. KNEE RAISE: Lying on the back with knees bent, raise one knee to your chest, then the other. Hold both knees against the chest 10 seconds, then lower one knee at a time. Repeat 10 times, twice daily. PARTIAL TRUNK RAISE: Lie face down, arms at your sides. Keeping your waist on the floor, use your arms raise your chest up. Support yourself on your elbows for 30 seconds. Repeat twice daily, increasing the time to two minutes as you recover. STEROID MEDICATION: You have been given a medicine of the cortisone/steroid class. This medication is used to control inflammation or allergy. It is usually only given for a short period of time, until the acute process subsides. There are usually no side effects from short-term use of cortisone-like medications. Some persons feel an increased sense of well-being and are not sleepy at bedtime. Long-term use of cortisone medications is best avoided, unless required for a severe condition. If your condition does not remit, or relapses after the course of corticosteroid medication, you should consult your physician. MUSCLE RELAXERS: Muscle relaxing medications are usually prescribed for acute muscle spasm or injury to the neck and back. They are often combined with antiinflammatory pain medication for increased relief. You may stop the muscle relaxer when the pain and stiffness have improved. Start the medication again if spasms recur. Muscle relaxers may cause drowsiness, especially with the first dose. Do not operate machinery or drive while under the effects of the medication. Most muscle relaxers last up to 24 hours. Do not combine the medication with alcohol. ICE PACKS: Apply ice packs frequently against the painful area. Many different schedules are recommended, such as "20 minutes on, 20 minutes off" or "one hour ice, two hours rest." If you need to work, you may need to go longer between ice treatments. You should plan to have the area ice packed AT LEAST one fourth of the time. The ice should be applied over the wrap, tape, or splint, or over a layer of cloth -- not directly against the skin. Some ice bags have a built-in cloth and can be put directly on the skin. WARM PACKS: After approximately two days, apply gentle heat (such as a heating pad or hot water bottle) for about 20 to 30 minutes about every two hours -- at least four times daily. Warmth and elevation will help you make a more rapid recovery , and will ease the pain considerably. Do not use HOT heat, and never apply heat for longer than 30 minutes. The continuous heat can invisibly damage skin and muscles -- even when no burn is seen on the surface. Damaged muscles can make you MORE sore. FOLLOW-UP CARE: If you have been referred to a physician for follow-up care, call the physician s office for an appointment as you were instructed or within the next two days. If you experience worsening or a significant change in your symptoms, notify the physician immediately or return to the Emergency Department at any time for re-evaluation. Prescriptions: Ibuprofen 600 mg PO Q6HP PRN #20 tablet PRN Reason: Cyclobenzaprine HCl [Flexeril 10 mg Tablet] 10 mg PO TIDP PRN #15 tab PRN Reason: Prednisone [Deltasone 20 mg Tablet] 3 tab PO DAILY 5 Days tablet Forms: Elevated Blood Pressure, Return to Work Referrals: LARRY RAMOS MD [Primary Care Provider] - Follow up as needed
[2018-02-04 13:21] VITALS: BP 117/70
== END 2018-02-04 13:20 | disposition home or self-care (01) ==
LOC: ER 11:07
DX: M54.41 Lumbago with sciatica, right side (principal); M79.604 Pain in right leg; R20.0 Anesthesia of skin; M79.1 Myalgia; F17.210 Nicotine dependence, cigarettes, uncomplicated; I10 Essential (primary) hypertension
CPT/HCPCS: 99406; 99283; 96372; 72110; J1885; J1100

== ENCOUNTER 2018-06-25 13:15 | Emergency (ER) | payer SELFPAY ==
[2018-06-25] MEDS ORDERED: TETRACAINE HCL 0.5% OPH SOLN 4 ML OU ONE (14:21)
[2018-06-25] MEDS ORDERED: GENTAMICIN SULFATE 0.3% OPH SOLN (5 ML/ER DISP) OS SCH (14:45)
--- NOTE | 2018-06-25 14:51 | ER Document Report ---
HPI - HPI Pain Level: 1 Notes: Patient is an otherwise healthy 43-year-old female who presents to the emergency department chief complaint of right eye pain. Patient reports she thinks a wooden object flew into her eye yesterday. Patient reports that she thinks her eye was scratched. She reports that she is able to see okay but her vision is mildly blurry. - EENT EENT: REPORTS: Eye problems - right eye pain when focus. DENIES: Sore Throat, Ear Pain - NEURO Neurology: REPORTS: Vision blurred - CARDIOVASCULAR Cardiovascular: DENIES: Chest pain - RESPIRATORY Respiratory: DENIES: Trouble Breathing, Coughing - GASTROINTESTINAL Gastrointestinal: DENIES: Abdominal Pain - REPRODUCTIVE Reproductive: DENIES: : Past Medical History - General Information source: Patient - Social History Smoking Status: Current Every Day Smoker Frequency of alcohol use: None Drug Abuse: None Family History: Reviewed & Not Pertinent Patient has suicidal ideation: No Patient has homicidal ideation: No - Past Medical History Cardiac Medical History: Reports: Hx Hypertension Renal/ Medical History: Denies: Hx Peritoneal Dialysis GI Medical History: Reports: Hx Diverticulitis Musculoskeletal Medical History: Reports Hx Arthritis, Reports Hx Musculoskeletal Deformity, Reports Hx Musculoskeletal Trauma Past Surgical History: Reports: Hx Cardiac Catheterization, Hx Gynecologic Surgery - leep, Hx Tubal Ligation, Other - Lip surgery - Immunizations Hx Diphtheria, Pertussis, Tetanus Vaccination: Yes Vertical Provider Document - CONSTITUTIONAL Notes: PHYSICAL EXAMINATION: GENERAL: Well-appearing, well-nourished and in no acute distress. HEAD: Atraumatic, normocephalic. EYES: Pupils equal round extraocular movements intact, conjunctiva are normal. No foreign bodies seen on examination with slit lamp. Uptake of floor seen dye noted to small area near the 3 o'clock position. ENT: Nares patent NECK: Normal range of motion LUNGS: No respiratory distress Musculoskeletal: Normal range of motion NEUROLOGICAL: Normal speech, normal gait. PSYCH: Normal mood, normal affect. SKIN: Warm, Dry, normal turgor, no rashes or lesions noted. - INFECTION CONTROL TRAVEL OUTSIDE OF THE [place] IN LAST 30 DAYS: No Course - Re-evaluation Re-evalutation: Examination is consistent with mild corneal abrasion. Patient will be placed on antibiotic eyedrops and referred to see Dr. Young. Patient verbalizes understanding of importance of following up with Dr. Young. Patient given strict ED return precautions. - Vital Signs Vital signs: Temp Pulse Resp BP Pulse Ox 98.8 F 73 16 109/66 96 06/25/18 13:35 06/25/18 13:35 06/25/18 13:35 06/25/18 13:35 06/25/18 13:35 Procedures - Eye Procedure Right Fluorescein applied: Right Antibiotic Oinment/Drps Admin: Right eye Slit lamp used: Yes Discharge - Discharge Clinical Impression: Corneal abrasion Condition: Stable Disposition: HOME, SELF-CARE Additional Instructions: Corneal Abrasion You have a corneal abrasion, a scratch on the surface of the eye. The pain of a corneal abrasion feels like a sharp particle in the eye. Usually, antibiotics are placed in the eye to prevent infection. Occasionally, medication will be placed in the eye to dilate the pupil. This is done to relieve some of your discomfort and is only temporary. Pain medication may be required. Don't drive or operate machinery until you have the use of both your eyes. The abrasion usually is healed in one or two days. A follow-up examination to confirm healing is recommended. Call the doctor or return at once if you develop severe pain, decreasing vision, eye swelling, or purulent drainage. Is instilled 2 drops of the gentamicin into your right eye every 4 hours. Please call tomorrow and schedule an appointment for ophthalmology to follow- up. Return to the emergency department if you develop worsening pain, worsening vision eye swelling or purulent drainage from the eye as outlined above. Referrals: SANG YOUNG MD [ACTIVE STAFF] - Follow up as needed
[2018-06-25 15:04] VITALS: BP 103/67
== END 2018-06-25 15:04 | disposition home or self-care (01) ==
LOC: ER 13:15
DX: S05.01XA Injury of conjunctiva and corneal abrasion without foreign body, right eye, initial encounter (principal); X58.XXXA Exposure to other specified factors, initial encounter; F17.210 Nicotine dependence, cigarettes, uncomplicated; I10 Essential (primary) hypertension; Z98.51 Tubal ligation status
CPT/HCPCS: 99283; J3490 ×2

== ENCOUNTER → 2020-06-29 | Day surgery (SDC) | payer BC ==
[~2020-06-29] MED LIST: LIDOCAINE 1% INJ-PF (10 MG/ML) 30 ML SDV ONE
--- NOTE | 2020-06-29 13:03 | RADIOLOGY REPORT (SQ) ---
EXAM DESCRIPTION: ARTHRO HIP INJ W/ANESTHESIA; FLUORO/NEEDLE PLACEMENT IMAGES COMPLETED DATE/TIME: 06/29/2020 10:37 am REASON FOR STUDY: RT HIP PAIN M25.551 PAIN IN RIGHT HIP COMPARISON: None. FLUOROSCOPY TIME: FT: 7 SECONDS. 1 image saved to PACS. LIMITATIONS: None. PROCEDURE: Procedure, risks, benefits and alternatives explained to patient who then gave written c onsent. The right hip was marked and a time-out was called for correct marking verification. Entry site marked using fluoroscopic guidance. Hip prepped and draped using sterile technique. Local ane sthesia achieved using 1% lidocaine injection. Hypodermic needle introduced into the joint space un eulogio direct fluoroscopic visualization. Non-ionic contrast instilled to confirm intra-articular posit ion. Dilute gadolinium solution then injected. Needle removed and entry site covered with sterile bandage. No immediate complications noted. TECHNIQUE: Digital images acquired during fluoroscopy and stored on PACS. Patient immediately take n to the MR suite for additional imaging. INJECTION LOCATION: Right hip CONTRAST TYPE AND AMOUNT: 10 mL Prohance/Saline mixture. IMPRESSION: SUCCESSFUL NEEDLE PLACEMENT AND INJECTION FOR RIGHT HIP MR ARTHROGRAM. COMMENT: Quality ID 145: Final reports for procedures using fluoroscopy that document radiation exp osure indices, or exposure time and number of fluorographic images (if radiation exposure indices are not available) TECHNICAL DOCUMENTATION: JOB ID: [id number] 2010 [employer]- All Rights Reserved Reading location - IP/workstation name: [email or web address] [id number]
--- NOTE | 2020-06-29 13:03 | RADIOLOGY REPORT (SQ) ---
EXAM DESCRIPTION: ARTHRO HIP INJ W/ANESTHESIA; FLUORO/NEEDLE PLACEMENT IMAGES COMPLETED DATE/TIME: 06/29/2020 10:37 am REASON FOR STUDY: RT HIP PAIN M25.551 PAIN IN RIGHT HIP COMPARISON: None. FLUOROSCOPY TIME: FT: 7 SECONDS. 1 image saved to PACS. LIMITATIONS: None. PROCEDURE: Procedure, risks, benefits and alternatives explained to patient who then gave written c onsent. The right hip was marked and a time-out was called for correct marking verification. Entry site marked using fluoroscopic guidance. Hip prepped and draped using sterile technique. Local ane sthesia achieved using 1% lidocaine injection. Hypodermic needle introduced into the joint space un eulogio direct fluoroscopic visualization. Non-ionic contrast instilled to confirm intra-articular posit ion. Dilute gadolinium solution then injected. Needle removed and entry site covered with sterile bandage. No immediate complications noted. TECHNIQUE: Digital images acquired during fluoroscopy and stored on PACS. Patient immediately take n to the MR suite for additional imaging. INJECTION LOCATION: Right hip CONTRAST TYPE AND AMOUNT: 10 mL Prohance/Saline mixture. IMPRESSION: SUCCESSFUL NEEDLE PLACEMENT AND INJECTION FOR RIGHT HIP MR ARTHROGRAM. COMMENT: Quality ID 145: Final reports for procedures using fluoroscopy that document radiation exp osure indices, or exposure time and number of fluorographic images (if radiation exposure indices are not available) TECHNICAL DOCUMENTATION: JOB ID: [id number] 2010 [employer]- All Rights Reserved Reading location - IP/workstation name: [email or web address] [id number]
== END ==
LOC: RAD 09:29
PROVIDERS: ATTEND Physician Assistant
DX: M25.551 Pain in right hip (principal)
CPT/HCPCS: 73722; 77002; 27095; A9576; J3490

== ENCOUNTER 2020-07-16 12:21 | Emergency (ER) | payer OTHER, BC ==
[2020-07-16] MEDS ORDERED: LIDOCAINE 1% INJ-PF (10 MG/ML) 30 ML SDV INJ ONE (12:58)
[2020-07-16] MEDS ORDERED: DIPH/PERTUSS(ACELL)/TETANUS VAC/PF 0.5 ML SYR (>=10YO) IM ONE (13:01)
--- NOTE | 2020-07-16 13:04 | ER Document Report ---
ED Medical Screen (RME) - General Chief Complaint: Dog Bite Stated Complaint: DOG BITE Time Seen by Provider: 07/16/20 12:51 Primary Care Provider: RUSSELL TOLEDO PA [Primary Care Provider] - Follow up as needed TRAVEL OUTSIDE OF THE [place] IN LAST 30 DAYS: No - HPI Notes: Patient is a 45-year-old female who presents with a dog bite that occurred just prior to arrival. 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 Patient is complaining of jaw pain and has a large laceration to her right lower lip. She denies any other injuries. Her last tetanus shot was over 5 years ago. 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 - Related Data Allergies/Adverse Reactions: Sulfa (Sulfonamide Antibiotics) Adverse Reaction (Verified 07/16/20 12:46) Past Medical History - Social History Chew tobacco use (# tins/day): No Drug Abuse: None - Past Medical History Cardiac Medical History: Reports: Hx Hypertension Renal/ Medical History: Denies: Hx Peritoneal Dialysis GI Medical History: Reports: Hx Diverticulitis Musculoskeltal Medical History: Reports Hx Arthritis, Reports Hx Musculoskeletal Deformity, Reports Hx Musculoskeletal Trauma Past Surgical History: Reports: Hx Cardiac Catheterization, Hx Gynecologic Surgery - leep, Hx Tubal Ligation, Other - Lip surgery - Immunizations Hx Diphtheria, Pertussis, Tetanus Vaccination: Yes Physical Exam - Vital signs Vitals: Temp Pulse Resp BP Pulse Ox 98.1 F 89 20 119/77 100 07/16/20 12:34 07/16/20 12:34 07/16/20 12:34 07/16/20 12:34 07/16/20 12:34 - HEENT Mouth/Lips: Laceration - Large laceration to the right lower lip with no active bleeding, Other - Tenderness to lower jaw bilaterally Course - Re-evaluation Re-evalutation: I have greeted and performed a rapid initial assessment of this patient. A comprehensive ED assessment and evaluation of the patient, analysis of test results and completion of medical decision making process will be conducted by an additional ED providers. - Vital Signs Vital signs: Temp Pulse Resp BP Pulse Ox 98.1 F 89 20 119/77 100 07/16/20 12:34 07/16/20 12:34 07/16/20 12:34 07/16/20 12:34 07/16/20 12:34 Doctor's Discharge - Discharge Referrals: RUSSELL TOLEDO PA [Primary Care Provider] - Follow up as needed
--- NOTE | 2020-07-16 14:23 | RADIOLOGY REPORT (SQ) ---
EXAM DESCRIPTION: CT FACIAL AREA WITHOUT IMAGES COMPLETED DATE/TIME: 07/16/2020 1:21 pm REASON FOR STUDY: jaw injury COMPARISON: None. TECHNIQUE: Noncontrasted images through the facial bones and orbits windowed for bone and soft tissu e. Additional coronal and sagittal reconstructed images reviewed. All images stored on PACS. All CT scanners at this facility use dose modulation, iterative reconstruction, and/or weight based d osing when appropriate to reduce radiation dose to as low as reasonably achievable (ALARA). [facility]: Dose Right [facility]: CareDose [facility]: Dose Right [facility]: Teradose 4D [facility]: [employer] RADIATION DOSE: mGy. LIMITATIONS: None. FINDINGS: FACIAL BONES: No fracture or bone lesion. ORBITS: Intact. No fracture. Symmetric intact globes and retroorbital soft tissues. PARANASAL SINUSES: Clear. No significant mucosal thickening, mass or fluid. No nasal polyps. Maxill allyson sinus outlets are patent. SOFT TISSUES: Cannot exclude a small amount of air in the soft tissues adjacent to the mandible. INFERIOR BRAIN: Limited view. No acute findings. OTHER: No other significant finding. IMPRESSION: There appears to be a small amount of air in the soft tissues adjacent to the mandible. This would be consistent with the history of dog bite. No facial fracture is present. TECHNICAL DOCUMENTATION: JOB ID: [id number] Quality ID # [id number]: Final reports with documentation of one or more dose reduction techniques (e.g., Au tomated exposure control, adjustment of the mA and/or kV according to patient size, use of iterative reconstruction technique) 2010 [employer]- All Rights Reserved Reading location - IP/workstation name: [email or web address]
[2020-07-16] MEDS ORDERED: OXYCODONE-ACETAMINOPHEN 5-325 MG TABLET PO ONE (14:30)
[2020-07-16] MEDS ORDERED: AMOXICILLIN TR/POT CLAVULANATE 875-125 MG TAB PO ONE (14:58)
--- NOTE | 2020-07-16 15:03 | ER Document Report ---
ED General <JERI MORROW - Last Filed: 07/16/20 15:29> - General TRAVEL OUTSIDE OF THE [place] 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 Her last tetanus was at least 7 years ago. She complains of pain in the right lip as well as the entire jaw. It is a constant sharp and pressure pain. The patient's dog bite was from an animal that his shots are up-to-date, is well-known to the facility. She denies any other injuries. She is not taking any blood thinners. (FIORELLA HORTON) - Related Data Allergies/Adverse Reactions: Sulfa (Sulfonamide Antibiotics) Adverse Reaction (Verified 07/16/20 12:46) Past Medical History - General Information source: Patient - Social History Smoking Status: Current Every Day Smoker Chew tobacco use (# tins/day): No Drug Abuse: None Family History: Reviewed & Not Pertinent Patient has homicidal ideation: No - Past Medical History Cardiac Medical History: Reports: Hx Coronary Artery Disease, Hx Heart Attack, Hx Hypertension Renal/ Medical History: Denies: Hx Peritoneal Dialysis GI Medical History: Reports: Hx Diverticulitis Musculoskeletal Medical History: Reports Hx Arthritis, Reports Hx Musculoskeletal Deformity, Reports Hx Musculoskeletal Trauma Past Surgical History: Reports: Hx Cardiac Catheterization, Hx Gynecologic Surg emil - leep, Hx Tubal Ligation, Other - Lip surgery - Immunizations Hx Diphtheria, Pertussis, Tetanus Vaccination: Yes <FIORELLA HORTON - Last Filed: 07/16/20 15:56> Review of Systems - Review of Systems Constitutional: No symptoms reported EENT: See HPI Cardiovascular: No symptoms reported Respiratory: No symptoms reported Gastrointestinal: No symptoms reported Genitourinary: No symptoms reported Musculoskeletal: No symptoms reported Skin: See HPI Neurological/Psychological: No symptoms reported <FIORELLA HORTON - Last Filed: 07/16/20 15:56> Physical Exam <HARLANJESUSFIORELLA - Last Filed: 07/16/20 15:56> - Vital signs Vitals: Temp Pulse Resp BP Pulse Ox 98.1 F 89 20 119/77 100 07/16/20 12:34 07/16/20 12:34 07/16/20 12:34 07/16/20 12:34 07/16/20 12:34 - Notes Notes: Vital signs reviewed, please refer to chart. Head is normocephalic. Pupils equal round, reactive to light. Examination of the face yields a jagged laceration to the right half of the lower lip. It is not through and through, but it does cross the vermilion border. It is approximately 2 cm in combined length. There is also a 0.5 cm laceration noted to the skin overlying the left lateral chin, with some subcutaneous fat visualized. Sensation is intact surrounding both wounds. Neck is supple without meningismus. Heart is regular rate and rhythm. Lungs are clear to auscultation bilaterally. Abdomen is soft, nontender, normoactive bowel sounds throughout. Extremities without cyanosis, clubbing. Posterior calves are nontender. Peripheral pulses are equal. (FIORELLA HORTON) Course - Diagnostic Test Radiology reviewed: Reports reviewed <HARLANJESUSFIORELLA - Last Filed: 07/16/20 15:56> - Re-evaluation Re-evalutation: 07/16/20 15:02 Patient presents emergency department for evaluation. She was initially seen through triage. She had CT scan ordered, was given medications and tetanus was updated. Patient has sustained a significant dog bite. I will start her on Augmentin. The smaller laceration should not be closed. I explained that to the patient. The large laceration will of course need closed, this will be performed by nurse practitioner Aziza Morrow, please see her procedure note attached to this phone. Patient is currently stable, we will continue to monitor. 07/16/20 15:55 Sutures placed by the nurse practitioner, please see her procedure note. Patient tolerated this well. I will send her home with antibiotics and wound care instructions. She is to have sutures removed in 5 to 7 days. She can have it done here or with her primary care provider. She is to return to the ED with worsening or new concerning symptoms of any sort. (FIORELLA HORTON) - Vital Signs Vital signs: Temp Pulse Resp BP Pulse Ox 98.1 F 89 20 119/77 100 07/16/20 12:34 07/16/20 12:34 07/16/20 12:34 07/16/20 12:34 07/16/20 12:34 - Diagnostic Test Radiology results interpreted by me: 07/16/20 15:[address] 07/16/20 13:00 IMPRESSION: There appears to be a small amount of air in the soft tissues adjacent to the mandible. This would be consistent with the history of dog bite. No facial fracture is present. (FIORELLA HORTON) Procedures - Laceration/Wound Repair Face Time completed: 15:25 Wound length (cm): 2 Wound's Depth, Shape: Irregular, Contused tissue Laceration pre-procedure: Sterile PPE donned, Sterile drapes applied Anesthetic type: 1% Lidocaine Volume Anesthetic (mLs): 2 Wound explored: No foreign body removed Irrigated w/ Saline (mLs): 40 Wound Repaired With: Sutures Suture Size/Type: 6:0, Ethilon Number of Sutures: 5 Layer Closure?: No Post-procedure NV exam normal: Yes Complications: No <JERI MORROW - Last Filed: 07/16/20 15:29> - Laceration/Wound Repair Face Notes: 07/16/20 15:26 Laceration was noted to be a through and through laceration. Wound was extensively irrigated. Alignment of the vermilion border was accomplished. L aceration inside the mouth was left open. Patient tolerated procedure well. 07/16/20 15:28 (JERI MORROW) Discharge <JERI MORROW - Last Filed: 07/16/20 15:29> <FIORELLA HORTON - Last Filed: 07/16/20 15:56> - Discharge Clinical Impression: Dog bite Qualifiers: Encounter type: initial encounter Qualified Code(s): W54.0XXA - Bitten by dog, initial encounter Lip laceration Qualifiers: Encounter type: initial encounter Qualified Code(s): S01.511A - Laceration without foreign body of lip, initial encounter Facial laceration Qualifiers: Encounter type: initial encounter Qualified Code(s): S01.81XA - Laceration without foreign body of other part of head, initial encounter Condition: Stable Disposition: HOME, SELF-CARE Instructions: Antibiotic Ointment Protection ([facility]), Laceration Care ([facility]), Prophylactic Antibiotic ([facility]), Tetanus Immunization Given ([facility]), Soap Cleansing ([facility]) Additional Instructions: Please keep wound clean with soap and water. Do not submerge wound in standing water. Watch for signs of infection, including increased pain, drainage, redness, fevers, vomiting. If this occurs, please return immediately to the ER. Otherwise, take all the antibiotics as prescribed. Have sutures removed in 5 to 7 days. You can either come here or see your primary care provider. [place] as needed for severe pain. Please take this with food, watch for dizziness, drowsiness, constipation with this medication. Return to the emergency department with worsening or new concerning symptoms of any sort. Prescriptions: Hydrocodone/Acetaminophen [[place] 5-325 Tablet] 1 each PO Q6HP PRN #10 tablet PRN Reason: Pain Scale Of 5 Amoxicillin/Potassium Clav [Augmentin 875-125 Tablet] 1 tab PO Q12 #14 tablet Referrals: RUSSELL TOLEDO PA [PHYSICIAN TRIPOLER] - Follow up as needed
[2020-07-16 16:05] VITALS: BP 127/72
== END 2020-07-16 16:05 | disposition home or self-care (01) ==
LOC: ER 12:21
DX: S01.511A Laceration without foreign body of lip, initial encounter (principal); S01.81XA Laceration without foreign body of other part of head, initial encounter; W54.0XXA Bitten by dog, initial encounter; Z88.2 Allergy status to sulfonamides
CPT/HCPCS: 99284; 90471; 70486; 90715; 12011; J3490 ×2